=== PATIENT | male | born 1995 | race Caucasian/White ===

== ENCOUNTER 2024-02-08 04:38 | Emergency (ER) | payer SELFPAY ==
[~2024-02-08] VITALS: Ht 185.4 cm; Wt 79.4 kg
[2024-02-08 04:42] VITALS: BP 130/93; PULSE 94; RESP 14; TEMP 98.3; O2SAT 97
[2024-02-08 05:12] VITALS: BP 130/93; PULSE 94; RESP 14; TEMP 98.3; O2SAT 97
== END 2024-02-08 05:21 ==
LOC: MED 04:38
DX: Z04.1 Encounter for examination and observation following transport accident (principal); R03.0 Elevated blood-pressure reading, without diagnosis of hypertension; V89.2XXA Person injured in unspecified motor-vehicle accident, traffic, initial encounter; Y93.89 Activity, other specified; Y92.89 Other specified places as the place of occurrence of the external cause; Y99.8 Other external cause status
CPT/HCPCS: 99283